=== PATIENT | male | born 1980 | race African-American/Black ===

== ENCOUNTER 2017-06-13 09:05 | Outpatient (CLI) | payer OTHER | END 2017-06-13 09:06 | disposition EMS.NT | LOC: EMS 09:05 | PROVIDERS: ATTEND Surgery | DX: R51 Headache (principal); M79.604 Pain in right leg; T63.441A Toxic effect of venom of bees, accidental (unintentional), initial encounter ==

== ENCOUNTER 2017-06-13 09:47 | Emergency (ER) | payer OTHER | END 2017-06-13 10:00 | disposition left against medical advice (07) | LOC: ED 09:47 | DX: Z53.21 Procedure and treatment not carried out due to patient leaving prior to being seen by health care provider (principal) ==

== ENCOUNTER 2017-06-14 15:20 | Emergency (ER) | payer OTHER ==
--- NOTE | 2017-06-14 15:54 | ED Physician Documentation ---
PD HPI SKIN - Stated complaint Stated Complaint: LEFT LEG PX/BEE STING - Chief complaint Chief Complaint: Wound - History obtained from History obtained from: Patient - History of Present Illness Timing - onset: Yesterday Timing - details: Abrupt onset, Still present (worse today - he was stung in leg yesterday several times, and once on top of head with local pain and some swelling, and also had feeling of lightheadedness, throat tightness and general weakness. Those symptoms lasted 5-10 minutes and improved. Leg was not doing badly so he continued usual activity. Today he is having increased redness and swelling of the sting site. No general symptoms today. scalp sting site not red today.) Location: LLE (thigh) Quality / character: Itchy, Burning, Discolored (red), Swelling. No: Draining Associated symptoms: No: Fever, Facial swelling, Dyspnea, N/V/D Contributing factors: Insect bite /sting Review of Systems Constitutional: denies: Fever, Chills, Myalgias Nose: denies: Rhinorrhea / runny nose, Congestion Throat: denies: Sore throat Cardiac: denies: Chest pain / pressure, Palpitations Respiratory: denies: Dyspnea, Cough, Wheezing GI: denies: Nausea, Vomiting, Diarrhea Neurologic: reports: Near syncope (yesterday soon after the sting, with symptoms for 5-10 minutes.) PD PAST MEDICAL HISTORY - Past Medical History Past Medical History: Yes Cardiovascular: None Respiratory: None Neuro: Seizure disorder Endocrine/Autoimmune: None - Past Surgical History Past Surgical History: Yes - Present Medications Home Medications: Ambulatory Orders Medication Instructions Recorded Confirmed Cephalexin [Keflex] 500 mg PO QID #24 capsule 06/14/17 Dexamethasone [Decadron] 4 mg PO DAILY #5 tablet 06/14/17 Epinephrine 0.3 mg IJ ONCE PRN #1 auto.injct 06/14/17 - Allergies Allergies/Adverse Reactions: Allergies Allergy/AdvReac Type Severity Reaction Status Date / Time acetaminophen [From Vicodin] Allergy Unknown Verified 06/14/17 15:32 hydrocodone bitartrate * Allergy Unknown Verified 06/14/17 15:32 [From Vicodin] - Social History Does the pt smoke?: No Smoking Status: Never smoker Does the pt drink ETOH?: Yes Does the pt have substance abuse?: No - Immunizations Immunizations are current?: Yes PD ED PE NORMAL - Vitals Vital signs reviewed: Yes - General General: Alert and oriented X 3, No acute distress, Well developed/nourished - HEENT HEENT: Pharynx benign - Cardiac Cardiac: RRR, No murmur - Respiratory Respiratory: No respiratory distress, Clear bilaterally - Derm Derm: Normal color, Warm and dry, Other (left lateral thigh and posterolateral lower leg with focal areas of redness and warmth, with induration about 5-6 cm diameter around coouple of the sites. Scalp sting site without redness. Other leg has a sting spot that does not have swelling. ) - Neuro Neuro: Alert and oriented X 3, No motor deficit, No sensory deficit, Normal speech Results - Vitals Vitals: Oxygen O2 Source Room air PD MEDICAL DECISION MAKING - ED course Complexity details: considered differential (increased redness today, from beesting in leg yesterday. Presume still local venom reaction though consider early cellulitis. At time of the stings, he did feel lightheaded, nausea, and some transient feeling of throat tightness, so I would have him carry epipen as well. ), d/w patient Departure - Departure Disposition: Home, Self Care Clinical Impression: Bee sting reaction Qualifiers: Encounter type: initial encounter Injury intent: undetermined intent Qualified Code(s): T63.444A - Toxic effect of venom of bees, undetermined, initial encounter Condition: Stable Record reviewed to determine appropriate education?: Yes Instructions: ED Bite Sting Insect Gen Allergic React Follow-Up: [facility] [Provider Group] Prescriptions: Dexamethasone [Decadron] 4 mg PO DAILY #5 tablet Epinephrine 0.3 mg IJ ONCE PRN #1 auto.injct PRN Reason: Anaphylaxis Cephalexin [Keflex] 500 mg PO QID #24 capsule Comments: Rest for the rest of today and elevate your legs with some cool towels to the sting areas. If this is local reaction than the swelling should go down aided by steroid dexamethasone. He can continue Benadryl every 6 hours if needed for itching or redness as well. With concern for early infection, also take cephalexin 4 times a day for the next several days. Recheck if not better over the next 2-3 days and return sooner if worsening. Since he did have some general reaction symptoms as well initially, you should probably carry an EpiPen for the rest of the fall season in case he gets stung again and have a worse reaction. Discharge Date/Time: 06/14/17 16:44
[2017-06-14] MEDS ORDERED: ACETAMINOPHEN 325 MG TABLET PO STA (16:21)
[2017-06-14] MEDS ORDERED: DEXAMETHASONE 10 MG/ML VIAL PO STA (16:21)
[2017-06-14] MEDS ORDERED: CEPHALEXIN 250 MG CAPSULE PO STA (16:21)
[2017-06-14] MEDS ORDERED: CEPHALEXIN 250 MG CAPSULE PO ONE (16:38)
[2017-06-14] MEDS ORDERED: ACETAMINOPHEN 325 MG TABLET PO ONE (16:38)
[2017-06-14] MEDS ORDERED: DEXAMETHASONE 10 MG/ML VIAL ONE (16:39)
[2017-06-14 16:45] VITALS: BP 141/92
== END 2017-06-14 16:44 | disposition home or self-care (01) ==
LOC: ED 15:20
DX: T63.441A Toxic effect of venom of bees, accidental (unintentional), initial encounter (principal)
CPT/HCPCS: 99283; A9270

== ENCOUNTER 2017-10-01 13:30 | Outpatient (CLI) | payer OTHER ==
[2017-10-01] MEDS ORDERED: IOTHALAMATE MEGLUMINE 50 ML VIAL ONE (13:55)
[2017-10-01] MEDS ORDERED: GADOPENTETATE DIMEGLUMINE 5 ML VIAL IVP ONE ×2 (13:56→14:31)
[2017-10-01] MEDS ORDERED: BUFFERED LIDOCAINE 10 ML SYRINGE IU ONE (14:31)
[2017-10-01] MEDS ORDERED: IOTHALAMATE MEGLUMINE 50 ML VIAL IVP ONE (14:31)
--- NOTE | 2017-10-01 16:06 | MRI Report ---
EXAM: RIGHT SHOULDER MRI ARTHROGRAM WITH CONTRAST EXAM DATE: 10/01/2017 03:01 PM. CLINICAL HISTORY: Right shoulder pain. COMPARISON: None. TECHNIQUE: Multiplanar, multisequence T1-weighted and fluid-sensitive sequences of the shoulder after an arthrographic injection of dilute gadolinium, dictated under a separate exam. Other: None. FINDINGS: Acromioclavicular Region: The acromion is type II. The acromioclavicular joint is unremarkable. Ther e is no contrast or fluid in the subacromial/subdeltoid bursa. Glenohumeral Region: No subluxation. No loose bodies. The articular cartilage is unremarkable. The gl enohumeral ligaments and joint capsule are unremarkable. Bone Marrow: No fracture, marrow edema or bone lesions. Labrum: The labrum is unremarkable. Biceps Tendon: The long head of the biceps tendon and biceps karli are intact. Musculature/Rotator Cuff: The subscapularis, supraspinatus, infraspinatus, and teres minor tendons ar e intact. No edema or fatty atrophy. Other: The subcutaneous tissues are unremarkable. IMPRESSION: No MRI abnormalities in the shoulder. [facility] MUSCULOSKE[facility]IOLOG[facility] SECTION Referring Provider Line: [phone] SITE ID: [id number]
--- NOTE | 2017-10-03 10:34 | XRAY Report ---
DATE OF SERVICE: 10/01/2017 RIGHT SHOULDER ARTHROGRAM: 10/01/2017 COMPARISON: There are no comparisons. INDICATION: Chronic right shoulder pain. TECHNIQUE: Fluoroscopic-guided right arthrogram. TECHNIQUE - FINDINGS Risks and benefits of the procedure were discussed with the patient, and he desired to proceed. A standard timeout was performed, which verified the patient's name, date of , and right shoulder as the correct joint. The patient was prepped and draped in normal sterile fashion. Lidocaine 1% 6 mL was injected for local anesthesia. Using a 20-gauge spinal needle, 12 mL of solution was injected into the right shoulder using fluoroscopic guidance. The solution contained 10 mL of lidocaine 1%, 10 mL normal saline, and 0.1% Magnevist. There were no complications. The patient was then escorted to the MRI suite. IMPRESSION: Successful right shoulder arthrogram. TD: 10/01/2017 22:27 VERNA
== END 2017-10-01 13:31 | disposition home or self-care (01) ==
LOC: DI 13:30
PROVIDERS: ATTEND General Practice
DX: M25.511 Pain in right shoulder (principal)
CPT/HCPCS: 23350; 73222; 77002; Q9961

== ENCOUNTER 2018-07-14 14:12 | Outpatient (CLI) | payer OTHER | END 2018-07-14 14:13 | disposition home or self-care (01) | LOC: SC 14:12 | PROVIDERS: ATTEND Internal Medicine Pulmonary Disease | DX: G47.30 Sleep apnea, unspecified (principal); G47.10 Hypersomnia, unspecified; R06.83 Snoring; G47.8 Other sleep disorders | CPT/HCPCS: 99203; 99212 ==

== ENCOUNTER 2018-08-27 20:11 | Outpatient (CLI) | payer OTHER | END 2018-08-27 20:12 | disposition home or self-care (01) | LOC: SC 20:11 | PROVIDERS: ATTEND Internal Medicine Pulmonary Disease | DX: G47.33 Obstructive sleep apnea (adult) (pediatric) (principal) | CPT/HCPCS: 95810 ==

== ENCOUNTER 2018-09-11 11:11 | Outpatient (CLI) | payer OTHER | END 2018-09-11 11:12 | disposition home or self-care (01) | LOC: SC 11:11 | PROVIDERS: ATTEND Internal Medicine Pulmonary Disease | DX: G47.33 Obstructive sleep apnea (adult) (pediatric) (principal) | CPT/HCPCS: 99212; 99214 ==

== ENCOUNTER 2018-12-10 08:40 | Outpatient (CLI) | payer OTHER | END 2018-12-10 08:41 | disposition home or self-care (01) | LOC: SC 08:40 | PROVIDERS: ATTEND Nurse Practitioner Family | DX: G47.33 Obstructive sleep apnea (adult) (pediatric) (principal) | CPT/HCPCS: 99212; 99215 ==

== ENCOUNTER 2019-01-19 08:16 | Outpatient (CLI) | payer OTHER | END 2019-01-19 08:17 | disposition home or self-care (01) | LOC: SC 08:16 | PROVIDERS: ATTEND Nurse Practitioner Family | DX: G47.33 Obstructive sleep apnea (adult) (pediatric) (principal) | CPT/HCPCS: 99212; 99214 ==

== ENCOUNTER 2019-04-20 | Outpatient (CLI) | payer OTHER | END 2019-04-20 08:59 | disposition home or self-care (01) | DX: G47.33 Obstructive sleep apnea (adult) (pediatric) (principal) | CPT/HCPCS: 99212; 99214 ==

== ENCOUNTER 2019-05-09 13:23 | Emergency (ER) | payer OTHER ==
[2019-05-09 13:31] VITALS: BP 148/96
--- NOTE | 2019-05-09 13:36 | ED Physician Documentation ---
History of Present Illness - Stated complaint Stated Complaint: SWOLLEN RT FOOT - Chief complaint Chief Complaint: Ext Problem - History obtained from History obtained from: Patient - Additonal information Additional information: Patient is a 39-year-old male presenting with right great toe pain and swelling over the past several days that began without particular fall, trauma or inciting incident. Patient Denies fever, chills, but admits to nausea without vomiting. No abdominal pain, urine changes, stool changes, or sensation changes to the right lower extremity. Patient denies Inability to bear weight on this leg, but does report decrease in strength and range of motion because of swelling and pain. No other improving or worsening factors noted. Review of Systems Constitutional: denies: Fever, Chills GI: reports: Nausea. denies: Abdominal Pain, Vomiting, Diarrhea : denies: Dysuria Skin: denies: Rash, Laceration (s) Musculoskeletal: reports: Extremity pain, Joint pain, Extremity swelling, Joint swelling. denies: Pain with weight bearing Neurologic: reports: Focal weakness. denies: Numbness PD PAST MEDICAL HISTORY - Past Medical History Past Medical History: No Cardiovascular: None Respiratory: None Endocrine/Autoimmune: None - Past Surgical History Past Surgical History: Yes - Present Medications Home Medications: Ambulatory Orders Medication Instructions Recorded Confirmed EPINEPHrine [Epinephrine] 0.3 mg IJ ONCE PRN #1 auto.injct 06/14/17 Naproxen 500 mg PO BID 7 Days tablet 05/09/19 predniSONE [Prednisone] 40 mg PO DAILY 5 Days tablet 05/09/19 - Allergies Allergies/Adverse Reactions: Allergies Allergy/AdvReac Type Severity Reaction Status Date / Time acetaminophen [From Vicodin] Allergy Unknown Verified 05/09/19 13:31 bee venom protein (honey bee) Allergy Anaphylaxis Verified 05/09/19 13:31 hydrocodone bitartrate * Allergy Unknown Verified 05/09/19 13:31 [From Vicodin] - Social History Does the pt smoke?: No Smoking Status: Never smoker Does the pt drink ETOH?: Yes Does the pt have substance abuse?: No - Immunizations Immunizations are current?: Yes PD ED PE NORMAL - Vitals Vital signs reviewed: Yes - General General: Alert and oriented X 3, No acute distress, Well developed/nourished - HEENT HEENT: Atraumatic, Moist mucous membranes - Neck Neck: Supple, no meningeal sign - Cardiac Cardiac: Strong equal pulses - Respiratory Respiratory: No respiratory distress - Derm Derm: Normal color, Warm and dry, No rash - Extremities Extremities: No deformity, Other (Significant tenderness at base of right great toe with surrounding edema. No other overlying skin changes. Limited range of motion due to pain and swelling, sensation intact.). No: No tenderness to palpate, No edema - Neuro Neuro: Alert and oriented X 3, No sensory deficit. No: No motor deficit - Psych Psych: Normal mood, Normal affect Results - Vitals Vitals: Vital Signs - 24 hr 05/09/19 13:28 Temperature 36 C L Heart Rate 103 H Respiratory 18 Rate Blood Pressure 148/96 H O2 Saturation 99 Oxygen O2 Source Room air PD MEDICAL DECISION MAKING - ED course Complexity details: considered differential, d/w patient ED course: Patient presenting with signs of gout flare. Patient denies history of such, but based on quality and location of pain, associated symptoms, and physical exam, do feel this is likely the cause of his issues. Patient denies trauma do not find evidence of such on exam and have lower suspicion for bony abnormalities including dislocation or fracture. Do not feel patient requires x-ray at this time.Additionally, patient denies symptoms of infection and do not find evidence of cellulitis, abscess, joint infection, lymphangitis on exam. Do not feel patient requires further invasive testing at this time and discussed use of prednisone and naproxen, as well as other supportive cares, return precautions, and appropriate follow-up. Patient voiced understanding and is comfortable with discharge plan. Departure - Departure Disposition: 01 Home, Self Care Clinical Impression: Gout Qualifiers: Gout site: toe Gout etiology: unspecified cause Chronicity: acute Laterality: right Qualified Code(s): M10.9 - Gout, unspecified Condition: Good Instructions: ED Diet Gout, ED Arthritis Gout Follow-Up: your,doctor [Other] - Within 3 Days Prescriptions: Naproxen 500 mg PO BID 7 Days tablet predniSONE [Prednisone] 40 mg PO DAILY 5 Days tablet Comments: Please take prednisone and naproxen as prescribed through completion to treat gout flare. Additionally recommend elevation and ice application to help reduce swelling. Please follow-up with primary care physician in next 2 to 3 days and return to ED sooner if experience worsening symptoms or have other concerns.
== END 2019-05-09 13:50 | disposition home or self-care (01) ==
LOC: ED 13:23
DX: M10.9 Gout, unspecified (principal)
CPT/HCPCS: 99282; 99283

== ENCOUNTER 2019-06-15 09:12 | Outpatient (CLI) | payer OTHER ==
--- NOTE | 2019-06-18 18:41 | SLEEP CARE CONSULTATION ---
Information from patient questionnaire entered by India Avila. I have reviewed and concur with the information entered by India Avila. This document represents the service I personally performed and the decisions made by me, Jillian Rizo, RN, MSN, DIRECTOR TALENT ACQUISITION. History of Present Illness Previous diagnosis: Mild, Obstructive Sleep Apnea-Hypopnea Syndrome AHI: 8.1 Reason for CPAP/BiPAP follow up: other (2 MONTH) Equipment type: CPAP Equipment obtained from: Terry Prior sleep studies: Yes Year and Where: 2017 [facility] additional information: Since last seen, he started positional therapy as the CPAP seemed to keep him awake. He feels more rested with positional therapy then CPAP. He used body pillow that wraps around his body. He did not wake on his back. His sleep schedule is less interrupted since his spouse sleep hours are similar to his. He was also to strive for more sleep. He is now going to sleep at 10:30 and waking about 5am and feels he is sleeping all that time about 6.5 hours. Subjective Initial [place] Sleepiness Scale score: 18 Current [place] Sleepiness Scale score: 10 Allergies and Home Medications Known drug allergies: Yes (vicodin) Home medication list reviewed: Yes Allergy and home medication list: Epi pen as needed for bee stings Review of Systems Review of systems same as previous: Yes Physical Exam Blood Pressure: 120/90 Cuff size: long Heart Rate: 80 O2 Saturation: 98 Height: 5 ft 11.5 in Weight (kg): 272 lb 3.2 oz (with boots and fatigues) Weight change since last visit: gained 9 pounds Body Mass Index: 37.4 BMI Classification: Class 2 Impression and Plan 1. Obstructive Sleep Apnea-Hypopnea Syndrome, mild, with good reported positional therapy treatment . On positional therapy the patient has better sleep quality and is more rested overall with residual fatigue. His [place] has decreased from 14 last visit to 9 this visit. His initial [place] was 18. Thus since he is doing well with this method, he is to continue. The CPAP should be paid for by now, so he is advised to keep it incase he changes him mind. I also advised him to strive for 7-8 hours of sleep as his current average is 6.5 hours to reduce residual fatigue. Most people require 7-9 hours for optimal mental and physcial function. He can do this by going bed about 15 minutes earlier a night until he feels more rested. Since his has gained weight , I explained how it affects overall health including blood pressure. It also can i ncrease his apnea risks. He is advised to refrain from refined foods and increase healthy content and reduced portions He could consider diet consultation if he is unable to reach weight loss goals. Patient's apnea severity and rationale for treatment to reduce apnea, improve sleep quality and reduce cardiovascular and cerebrovascular events was reviewed. * Continue positional therapy. * Obtain more sleep. * Change CPAP pressure to cmH2O * Attempt to lose weight * Return for follow up in 6 months , or sooner if concerns arise I spent 100% of this 30 minute visit face to face with the patient with greater than 50% of this was spent time counseling the patient and coordination of care.
[2019-06-18 18:42] VITALS: BP 120/90
== END 2019-06-15 09:13 | disposition home or self-care (01) ==
LOC: SC 09:12
PROVIDERS: ATTEND Nurse Practitioner Family
DX: G47.33 Obstructive sleep apnea (adult) (pediatric) (principal)
CPT/HCPCS: 99212; 99214

== ENCOUNTER 2020-08-09 10:44 | Outpatient (CLI) | payer OTHER ==
--- NOTE | 2020-08-09 11:39 | SLEEP CARE CONSULTATION ---
Information from patient questionnaire entered by India Avila. I have reviewed and concur with the information entered by India Avila. This document represents the service I personally performed and the decisions made by , Marilu Worthington ARNP. History of Present Illness Service Date and Time: 08/09/2020 1044 Previous diagnosis: Mild, Obstructive Sleep Apnea-Hypopnea Syndrome AHI: 8.1 Reason for follow up: annual (last seen 05/2019) Prior sleep studies: Yes Year and Where: 2017 [facility] Type of Sleep Study: Polysomnography HPI additional information: PAUL PARKER was diagnosed to have mild, AHI 8.1, obstructive sleep apnea-hypopnea syndrome and returned today for positional management therapy annual follow-up. He has a pillow that he puts behind him and rarely finds himself on his back. He mostly sleeps on his stomach. Sleep Study - Results Prior sleep studies: Yes Year and Where: 2017 [facility] Subjective On therapy, patient: reports: sleeping better, awakening more refreshed, being more awake and alert during the day, more rested overall, other (getting more sleep because he is working from home; he is running daily about 2-3 miles daily). denies: drowsiness while driving Initial [place] Sleepiness Scale score: 18 Current [place] Sleepiness Scale score: 5 Allergies and Home Medications Drug allergies reviewed: Yes (vicodin) Home medication list reviewed: Yes (Lyzopran) Review of Systems Review of systems same as previous: No (Depression) Physical Exam Heart Rate: 64 O2 Saturation: 98 Height: 5 ft 11 in Weight: 267 lb Body Mass Index: 37.2 BMI Classification: Obese Impression and Plan 1. Obstructive Sleep Apnea-Hypopnea Syndrome, [mild]. Patient has been using positional management therapy with good results. He states that he is "feeling better than he has in a long time". His [place] today is 5 which is reduced from 18 at initial evaluation. He rarely finds himself on his back and sleeps mostly on his stomach. Patient is currently at BMI of 36.2. He has started running 2-3 miles on average daily. He was encouraged to reduce weight by reducing refined foods and balancing content with vegetables, fruit and whole grain foods. He voiced understanding. * Continue positional management therapy * Notify me if snoring with mask or feeling that the pressure is too much or too little * Attempt to lose weight * Call this office if any problems using CPAP * Return for follow up in 1 year, or sooner if concerns arise Counseling Topics: Weight loss health impact Visit Type: In Office Time Spent with Patient (minutes): 17 Provider Statement: I spent 100% of the Face to Face Visit with the patient with greater than 50% spent counseling the patient and coordination of care.
== END 2020-08-09 10:45 | disposition home or self-care (01) ==
LOC: SC 10:44
PROVIDERS: ATTEND Nurse Practitioner Family
DX: G47.33 Obstructive sleep apnea (adult) (pediatric) (principal); E66.9 Obesity, unspecified; Z68.36 Body mass index [BMI] 36.0-36.9, adult
CPT/HCPCS: 99212; 99213